=== PATIENT | female | born 1940 | race Caucasian/White ===

== ENCOUNTER 2021-10-08 08:45 | Day surgery (SDC) | payer MEDICARE, BC ==
[~2021-10-08 08:45] MED LIST: Midazolam 1 MG/ML 2 ML SDV ONE; Propofol 200 MG/20 ML SDV ONE
[2021-10-08] MEDS ORDERED: Lactated Ringers 1,000 ML IV SCH (09:30)
[2021-10-08] MEDS ORDERED: Sodium Chloride 0.9% 10 ML Syringe FLUSH PRN (09:30)
[2021-10-08] MEDS ORDERED: Propofol 200 MG/20 ML SDV ONE (10:05)
[2021-10-08] MEDS ORDERED: Midazolam 1 MG/ML 2 ML SDV ONE (10:05)
== END 2021-10-08 11:35 | disposition home or self-care (01) ==
LOC: LL.SDS 08:45
PROVIDERS: ATTEND Surgery
PROC: 0DJD8ZZ Inspection of Lower Intestinal Tract, Via Natural or Artificial Opening Endoscopic (ICD-10-PCS; principal; 2021-10-08)
DX: K57.30 Diverticulosis of large intestine without perforation or abscess without bleeding (principal); K52.9 Noninfective gastroenteritis and colitis, unspecified; I10 Essential (primary) hypertension; Z87.891 Personal history of nicotine dependence
CPT/HCPCS: 00812; G0121; J2250; J2704; J7120; 88305

== ENCOUNTER 2024-02-14 02:30 | Inpatient (IN) | payer MEDICARE, BC ==
[2024-02-14 03:08] LABS: BASOPHILS ABSOLUTE AUTO 0.02 K/uL (0.00-0.20); BASOPHILS PERCENT AUTO 0.2 % (0.0-2.0); EOSINOPHILS ABSOLUTE AUTO 0.11 K/uL (0.00-0.50); HEMATOCRIT 33.6 % (34.0-46.0); HEMOGLOBIN 11.1 g/dL (11.7-15.5); LYMPHOCYTES ABSOLUTE AUTO 0.85 K/uL (0.50-3.50); LYMPHOCYTES PERCENT AUTO 7.9 % (10.0-50.0); MEAN CORPUSCULAR HEMOGLOBIN 29.8 pg (28.2-33.3); MEAN CORPUSCULAR VOLUME 90.1 fL (84.0-98.0); MONOCYTES ABSOLUTE AUTO 0.51 K/uL (0.00-1.00); MONOCYTES PERCENT AUTO 4.7 % (2.0-14.0); NEUTROPHILS ABSOLUTE AUTO 9.31 K/uL (1.40-7.00); NEUTROPHILS PERCENT AUTO 86.2 % (45.0-80.0); PLATELET COUNT,PLT 161 K/uL (150-350); RED BLOOD CELL COUNT 3.73 M/uL (3.77-5.09); RED CELL DISTRIBUTION WIDTH 14.5 % (11.2-14.1); WHITE BLOOD CELL COUNT,WBC 10.8 K/uL (4.0-10.2)
[2024-02-14 03:25] LABS: PROTHROMBIN TIME 10.4 SEC (9.0-11.1)
[2024-02-14 03:32] LABS: ALANINE AMINOTRANSFERASE,ALT 25 U/L (12-78); ALBUMIN 3.2 g/dL (3.4-5.0); ALKALINE PHOSPHATASE 77 IU/L (46-116); ANION GAP 8.1 meq/L (7-15); ASPARTATE AMNIOTRANSFERASE,AST 22 U/L (15-37); BILIRUBIN TOTAL 0.7 mg/dL (0.2-1.0); BLOOD UREA NITROGEN,BUN 42 mg/dL (7-18); CALCIUM 8.5 mg/dL (8.5-10.1); CARBON DIOXIDE,CO2 22.9 mmol/L (21.0-32.0); CHLORIDE,CL 106 mmol/L (98-107); CREATININE 1.75 mg/dL (0.51-1.17); GLUCOSE RANDOM 111 mg/dL (70-99); MAGNESIUM 1.3 mg/dL (1.8-2.4); POTASSIUM,K 4.2 mmol/L (3.5-5.1); PRO B-TYPE NATRIUR PEPT,BNPPRO 1010 pg/mL (0-125); PROTEIN TOTAL,TP 6.7 g/dL (6.4-8.2); SODIUM,NA 137 mmol/L (136-145)
[2024-02-14 03:33] LABS: ESTIMATED GFR 29 mL/min (>=60)
[2024-02-14] MEDS ORDERED: Acetaminophen 325 MG Tab PO PRN (04:46)
[2024-02-14] MEDS ORDERED: Albuterol/Ipratropium 3.0-0.5 MG/3 ML Neb Soln NEB PRN ×2 (04:46→04:55)
[2024-02-14] MEDS ORDERED: Prochlorperazine 10 MG/2 ML SDV IVPUSH PRN (04:53)
[2024-02-14] MEDS ORDERED: Famotidine 20 MG Tab PO PRN (04:57)
[2024-02-14] MEDS: Lactated Ringers 1,000 ML IV SCH (05:01)
[2024-02-14] MEDS: VANCOmycin 1.5 GM/300 ML 1.5 GM in Premix Bag 1 BAG IV ONE (05:02)
[2024-02-14] MEDS: Magnesium Sulfate/Water 2 GM in Premix Bag 1 BAG IV ONE (05:03)
[2024-02-14] MEDS ORDERED: Loperamide 2 MG Tab PO PRN (05:15)
[2024-02-14] MEDS: Furosemide 20 MG/2 ML VIAL IVPUSH ONE ×2 (05:50→08:39)
[2024-02-14] MEDS: Loperamide 2 MG Tab PO SCH (07:22)
[2024-02-14] MEDS: Levothyroxine 112 MCG Tab PO SCH (07:22)
[2024-02-14] MEDS ORDERED: ASCORBIC ACID PO SCH (08:00)
[2024-02-14] MEDS ORDERED: [UNRECOGNIZED DRUG - OTHER] PO SCH (08:00)
[2024-02-14] MEDS ORDERED: CRANBERRY PO SCH (08:00)
[2024-02-14] MEDS: Aspirin 81 MG Tab.Chew PO SCH (08:37)
[2024-02-14] MEDS: Magnesium Oxide 400 MG Tab PO SCH (08:38)
[2024-02-14] MEDS: Escitalopram 20 MG Tab PO SCH (08:38)
[2024-02-14] MEDS: Loratadine 10 MG Tab PO SCH (08:39)
[2024-02-14] MEDS: Sodium Chloride 0.9% 10 ML Syringe FLUSH PRN (08:48)
[2024-02-14 10:35] LABS: CALCIUM 8.6 mg/dL (8.5-10.1); CREATININE 1.64 mg/dL (0.51-1.17); EST CRCL DRUG DOSING (CG) 21.28 mL/min; MAGNESIUM 1.9 mg/dL (1.8-2.4); POTASSIUM,K 4.9 mmol/L (3.5-5.1)
[2024-02-14 10:47] LABS: ANION GAP 17.9 meq/L (7-15)
[2024-02-14 14:01] LABS: APPEARANCE,URINE SLIGHTLY CLOUDY; BILIRUBIN,URINE NEGATIVE (NEGATIVE); COLOR,URINE YELLOW; GLUCOSE,URINE NEGATIVE (NEGATIVE); KETONES,URINE NEGATIVE (NEGATIVE); LEUKOCYTE ESTERASE,URINE NEGATIVE (NEGATIVE); NITRITE,URINE NEGATIVE (NEGATIVE); OCCULT BLOOD,URINE TRACE-INTACT (NEGATIVE); PROTEIN,URINE 30 mg/dL (NEGATIVE); UROBILINOGEN,URINE 0.2 E.U./dL (0.2-1.0)
[2024-02-14 14:18] LABS: AMORPHOUS SEDIMENT,URINE FEW /HPF (0/HPF); RBC,URINE 0-5 /HPF; WBC,URINE 0-5 /HPF
[2024-02-14] MEDS: Piperacillin/Tazobactam 4.5 GM in Sodium Chloride 0.9% 100 ML IV ONE (16:26)
[2024-02-14] MEDS: Nitrofurantoin Monohydrate/Macrocrystalline 100 MG Cap PO SCH (19:09)
[2024-02-14] MEDS: Gabapentin 300 MG Cap PO SCH (20:31)
[2024-02-14] MEDS: Piperacillin/Tazobactam 4.5 GM in Sodium Chloride 0.9% 100 ML IV SCH (21:07)
[2024-02-15 07:43] LABS: BASOPHILS ABSOLUTE AUTO 0.02 K/uL (0.00-0.20); BASOPHILS PERCENT AUTO 0.2 % (0.0-2.0); EOSINOPHILS ABSOLUTE AUTO 0.26 K/uL (0.00-0.50); EOSINOPHILS PERCENT AUTO 2.6 % (0.0-5.0); HEMOGLOBIN 10.2 g/dL (11.7-15.5); LYMPHOCYTES ABSOLUTE AUTO 1.35 K/uL (0.50-3.50); LYMPHOCYTES PERCENT AUTO 13.6 % (10.0-50.0); MEAN CORPUSCULAR HEMOGLOBIN 29.3 pg (28.2-33.3); MEAN CORPUSCULAR HGB CONC 31.9 g/dL (31.7-36.0); NEUTROPHILS ABSOLUTE AUTO 7.71 K/uL (1.40-7.00); NEUTROPHILS PERCENT AUTO 77.6 % (45.0-80.0); PLATELET COUNT,PLT 123 K/uL (150-350); RED BLOOD CELL COUNT 3.48 M/uL (3.77-5.09); RED CELL DISTRIBUTION WIDTH 14.7 % (11.2-14.1); WHITE BLOOD CELL COUNT,WBC 9.9 K/uL (4.0-10.2)
[2024-02-15 07:53] LABS: ANION GAP 10.1 meq/L (7-15); CALCIUM 8.7 mg/dL (8.5-10.1); CARBON DIOXIDE,CO2 22.9 mmol/L (21.0-32.0); CREATININE 1.77 mg/dL (0.51-1.17); EST CRCL DRUG DOSING (CG) 19.71 mL/min; MAGNESIUM 1.9 mg/dL (1.8-2.4); POTASSIUM,K 4.5 mmol/L (3.5-5.1)
[2024-02-15] MEDS: Vitamin E (dl-alpha-tocopherol acetate) 400 Unit Cap PO SCH (11:12)
[2024-02-16 07:34] LABS: BASOPHILS ABSOLUTE AUTO 0.02 K/uL (0.00-0.20); BASOPHILS PERCENT AUTO 0.3 % (0.0-2.0); EOSINOPHILS ABSOLUTE AUTO 0.25 K/uL (0.00-0.50); EOSINOPHILS PERCENT AUTO 3.5 % (0.0-5.0); HEMATOCRIT 32.7 % (34.0-46.0); HEMOGLOBIN 10.4 g/dL (11.7-15.5); LYMPHOCYTES ABSOLUTE AUTO 1.59 K/uL (0.50-3.50); LYMPHOCYTES PERCENT AUTO 22.2 % (10.0-50.0); MEAN CORPUSCULAR HEMOGLOBIN 29.4 pg (28.2-33.3); MEAN CORPUSCULAR HGB CONC 31.8 g/dL (31.7-36.0); MEAN CORPUSCULAR VOLUME 92.4 fL (84.0-98.0); MONOCYTES ABSOLUTE AUTO 0.58 K/uL (0.00-1.00); MONOCYTES PERCENT AUTO 8.1 % (2.0-14.0); NEUTROPHILS ABSOLUTE AUTO 4.72 K/uL (1.40-7.00); NEUTROPHILS PERCENT AUTO 65.9 % (45.0-80.0); PLATELET COUNT,PLT 125 K/uL (150-350); RED BLOOD CELL COUNT 3.54 M/uL (3.77-5.09); RED CELL DISTRIBUTION WIDTH 14.5 % (11.2-14.1); WHITE BLOOD CELL COUNT,WBC 7.2 K/uL (4.0-10.2)
[2024-02-16 08:04] LABS: CALCIUM 8.6 mg/dL (8.5-10.1); CARBON DIOXIDE,CO2 26.5 mmol/L (21.0-32.0); CREATININE 1.57 mg/dL (0.51-1.17); EST CRCL DRUG DOSING (CG) 22.23 mL/min; TSH ULTRASENSITIVE 1.923 mIU/mL (0.358-3.740)
[2024-02-16 08:10] LABS: ANION GAP 12.5 meq/L (7-15)
== END 2024-02-17 16:00 | disposition home or self-care (01) | DRG 690 ==
LOC: LL.ED 02:30 → UNDOADMIN 04:16 → LL.MS 04:16 → UNDOADMIN 04:20 → LL.MS 04:46 → UNDODISIN 02-17 16:00
PROVIDERS: ADMIT Physician Assistant; ATTEND Physician Assistant
DX: N12 Tubulo-interstitial nephritis, not specified as acute or chronic (principal); N10 Acute pyelonephritis; B37.41 Candidal cystitis and urethritis; I10 Essential (primary) hypertension; Z16.24 Resistance to multiple antibiotics; Z66 Do not resuscitate; E78.00 Pure hypercholesterolemia, unspecified; K52.9 Noninfective gastroenteritis and colitis, unspecified; K21.9 Gastro-esophageal reflux disease without esophagitis; I12.9 Hypertensive chronic kidney disease with stage 1 through stage 4 chronic kidney disease, or unspecified chronic kidney disease; M81.0 Age-related osteoporosis without current pathological fracture; M19.90 Unspecified osteoarthritis, unspecified site; Z79.890 Hormone replacement therapy; F41.9 Anxiety disorder, unspecified; E03.9 Hypothyroidism, unspecified; E66.9 Obesity, unspecified; E83.42 Hypomagnesemia; R00.1 Bradycardia, unspecified; R79.89 Other specified abnormal findings of blood chemistry; N18.31 Chronic kidney disease, stage 3a; F34.1 Dysthymic disorder; D63.1 Anemia in chronic kidney disease; Z88.8 Allergy status to other drugs, medicaments and biological substances; Z79.899 Other long term (current) drug therapy; Z79.82 Long term (current) use of aspirin; Z87.19 Personal history of other diseases of the digestive system; Z68.31 Body mass index [BMI] 31.0-31.9, adult; Z86.16 Personal history of COVID-19; Z98.49 Cataract extraction status, unspecified eye; Z90.89 Acquired absence of other organs; Z90.49 Acquired absence of other specified parts of digestive tract; Z87.891 Personal history of nicotine dependence
CPT/HCPCS: 36415; 71046; 80048; 80053; 80202; 81001; 83605; 83735; 83880; 84443; 84484; 85025; 85610; 93005; 97162-GP; 99223; 99232; 99233; 99239; 99285; A9270-GY; J1940; J2543; J3372; J3475; J3490; J7120